=== PATIENT | male | born 1975 | race Caucasian/White ===

== ENCOUNTER 2018-07-20 14:12 | Emergency (ER) | END 2018-07-20 15:28 | disposition home or self-care (01) ==

== ENCOUNTER 2019-06-16 18:05 | Emergency (ER) | payer SELFPAY ==
[~2019-06-16] VITALS: Ht 180.3 cm; Wt 94.6 kg
[~2019-06-16 18:05] MED LIST: IBUP-1542 PO; IBUP-1561 PO
[2019-06-16 18:09] VITALS: Ht 180.3 cm; Wt 94.6 kg
[2019-06-16 20:01] VITALS: BP 124/65; PULSE 61; RESP 18
== END 2019-06-16 20:02 | disposition home or self-care (01) ==
LOC: FTE 18:05
DX: M54.5 Low back pain (principal); M79.602 Pain in left arm
CPT/HCPCS: 72100